=== PATIENT | male | born 1945 | race Caucasian/White ===

== ENCOUNTER 2016-07-15 09:45 | Emergency (ER) | payer OTHER, MEDICARE ==
[2016-07-15 10:23] VITALS: BP 100/67
[2016-07-15] MEDS ORDERED: Acetaminophen/HYDROcodone 325-10 MG Tab PO ONE (10:47)
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
[2016-07-15] MEDS ORDERED: Ketorolac 30 MG/ML SDV IM ONE (12:27)
== END 2016-07-15 12:45 | disposition home or self-care (01) ==
LOC: KA.ED 09:45
DX: S06.0X0A Concussion without loss of consciousness, initial encounter (principal); S13.4XXA Sprain of ligaments of cervical spine, initial encounter; F17.210 Nicotine dependence, cigarettes, uncomplicated; Z79.899 Other long term (current) drug therapy; V43.53XA Car driver injured in collision with pick-up truck in traffic accident, initial encounter
CPT/HCPCS: 70450; 72070; 72125; 96372; 99284; A9270; J1885